=== PATIENT | male | born 1980 | race Two or more races ===

== ENCOUNTER 2024-06-25 08:15 | Emergency (ER) | payer SELFPAY ==
[2024-06-25 08:16] VITALS: BMI 29.1
[2024-06-25 08:26] VITALS: BP 147/109; PULSE 90; RESP 19; TEMP 36.9; O2SAT 97; BMI 31.1
--- NOTE | 2024-06-25 08:46 | XR_ITS ---
Examination: CT lumbar spine, without contrast. 2-D sagittal reconstructions. 2-D coronal reconstructions. 3-D reconstructions. Date and time of exam:June 25, 2024 0857 hours INDICATIONS: Onset severe left-sided lower back pain beginning 2 days ago CTDI: vol (mGy):24.3 DLP: (mGycm):787 Technique: Multiple 1.25 mm axial sections of the lumbar spine without intravenous contrast have been obtained. 2-D sagittal and coronal reconstructions have been obtained. 3-D reconstructions have been obtained. Low dose protocols were performed. One or more of the following dose reduction techniques were used; automated exposure control, adjustment of the mA and/or KV according to patient size, use of iterative reconstruction technique. Findings: Mild osteopenia Adequate alignment lumbar vertebral bodies on the lateral view No lumbar vertebral body fracture Mild disc narrowing posteriorly L5-S1 Lumbar pedicles, laminae, transverse and posterior spinous processes intact L5-S1 3 mm central lumbar disc bulge, bilateral neural foraminal stenosis with mild bilateral L5 ganglionic compression L4-L5 3 mm central lumbar disc bulge L3-L4 no disc protrusion L2-L3 no disc protrusion L1-L2 no disc protrusion IMPRESSION: No lumbar fracture Mild disc narrowing posteriorly L5-S1 L5-S1 3 mm central lumbar disc bulge, bilateral neural foraminal stenosis with mild bilateral L5 ganglionic compression L4-L5 3 mm central lumbar disc bulge Consider MRI lumbar spine without contrast follow-up to best assess full extent of acquired soft tissue spinal stenosis
--- NOTE | 2024-06-25 08:46 | XR_ITS ---
Examination: CT abdomen and pelvis without contrast. Coronal 3-D reconstructions. Sagittal 2-D reconstructions. Date and time of exam:June 25, 2024 0857 hours INDICATIONS: Onset severe left flank pain beginning 2 days ago CTDI: vol (mGy): 10.2 DLP: (mGycm): 666 Technique: Axial images of the abdomen have been obtained, 3 mm slice thickness Intravenous contrast material has not been administered. Low dose protocols were performed. One or more of the following dose reduction techniques were used; automated exposure control, adjustment of the mA and/or KV according to patient size, use of iterative reconstruction technique. Findings: No focal liver or splenic lesions No gallstones No pancreatic or adrenal mass No renal or ureteral calculi, no hydronephrosis Aorta normal size Normal appendix 9 mm fat-containing umbilical hernia No bowel obstruction No diverticulitis No bladder mass or bladder calculi Normal seminal vesicles No prostatomegaly Mild osteopenia Bilateral advanced hip osteoarthritis, bilateral congenital hip dysplasia appearance with slanted right and left acetabulum IMPRESSION: No renal or ureteral calculi, no hydronephrosis, no perinephric stranding Normal appendix Advanced bilateral hip osteoarthritis, bilateral congenital hip dysplasia
[2024-06-25] MEDS: ACETAMINOPHEN w/COD 300-30 TABLET 2 TAB PO (09:25)
[2024-06-25] MEDS: IBUPROFEN TAB 400 MG TABLET 800 MG PO (09:25)
--- NOTE | 2024-06-25 10:35 | PD.EDBACK ---
ED Back Injury Pain RME/HPI General Chief Complaint: Back Pain/Injury Stated Complaint: VOMITING/LEFT SIDE BACK PAIN FOR 2 DAYS Time Seen by Provider: 06/25/24 08:28 Arrival date/time: 06/25/24 08:15 RME / HPI RME / HPI Narrative: This section includes all my notes and documentations, including HPI, PE, and ED course.? Kun Restrepo MD HPI: 44-year-old male here with a couple day history of left-sided flank pain and low back pain. Radiating into the left leg. No numbness or tingling. No paralysis. No loss of control of bladder or bowels. No saddle numbness. No other complaints. ROS: All negative except as documented in HPI. Physical Exam: General:? Alert and oriented.??Appears to be in pain. Eyes:? Conjunctivae and lids clear.?? ENT:? No nasal congestion.?? Neck:? Supple.?? Lungs:? No respiratory distress.?? Back: Equivocal lumbar tenderness. Limited range of motion due to pain. Left straight leg raise equivocal. Abdomen: Soft and nontender. Skin:? Warm and dry.?? Neuro:? Alert and oriented X 3.?? I reviewed all diagnostic test results. My review of the CT abdomen/pelvis report is?no renal or ureteral calculi, no hydronephrosis, normal appendix. My review of the CT lumbar spine report is?L5-S1 3 mm central lumbar disc bulge, bilateral neural foraminal stenosis with mild bilateral L5 ganglionic compression, L4-L5 3 mm central lumbar disc bulge. At this point, diagnoses include?sciatica. Treatment here included two Tylenol #3. Started to feel better. Recommended conservative treatment and more outpatient workup. Based on my best medical judgment, made decision no further evaluation or treatment indicated at this time.? Patient understands and agrees to the discharge instructions customized and printed, see below. Discharge Instructions from Dr. Restrepo: --After evaluation, we are dealing with Sciatica (same as Lumbar Radiculopathy or Spinal Stenosis) where pinched nerve is causing your symptoms.? --This condition is difficult because normal pain medications don?t work very well on nerve pain. --Despite the pain, try to resume your normal chores and activities.? Because inactivity is terrible for this condition.? And activity won?t make your condition worse.? Use a cane of stick in your left hand to help stand and walk.? --Use Ibuprofen and Tylenol with codeine and lidocaine patches as needed.? Don't expect the pain to go away completely, hoping to take the edge off.?? --When resting and sleeping, try left t sided position (with your knees to your chest and bending forward).? This can take some pressure off the nerve and help your pain. --Apply ice or heat if helpful. --See a private doctor (outside the ER) on 06/28/2024 for recheck and further care. Ask to help you get more care not available here in the ER.? Such as MRI imaging, physical therapy, and referrals to see specialists.? Some choose to have surgery for this condition. But you need to have MRI imaging to confirm the diagnosis and assess the severity to get the best treatments. --Seek immediate medical care with paralysis in your foot, losing control of your bladder or bowels, saddle numbness (anal numbness), or with any concerns.?? Instrucciones de zander del Dr. Restrepo: --Despu?s de la evaluaci?n, estamos tratando con ci?renetta (igual que radiculopat?a lumbar o estenosis mcbride) donde un nervio pinzado est? causando terri s?ntomas. --Esta condici?n es dif?cil porque los analg?sicos normales no funcionan muy glen para el dolor del nervio. --A pesar del dolor, trate de reanudar terri tareas y actividades normales. Porque la inactividad es terrible para esta condici?n. Y la actividad no empeorar? baird condici?n. Use un aletha?n en baird mano izquierda para ayudarse a pararse y caminar. --Use ibuprofeno y Tylenol con parches de code?na y lidoca?na seg?n sea necesario. No espere que el dolor desaparezca por completo, con la avis de aliviarlo. --Cuando descanse y duerma, intente la posici?n del lado valorie (con las rodillas en el pecho e inclin?ndose hacia adelante). [place] puede aliviar un poco la presi?n del nervio y aliviar baird dolor. --Aplique hielo o calor si es ?til. --Consulte a un m?dico privado (fuera de la mauricio de emergencias) el 28/06/2024 para un nuevo control y m?s atenci?n. [place]olicite ayuda para obtener m?s atenci?n que no est? disponible aqu? en la mauricio de emergencias, randall im?genes por resonancia magn?renetta, fisioterapia y derivaciones para mary a especialistas. Algunas personas optan por operarse para esta afecci?n. Dayday es necesario que se jhon susie resonancia magn?renetta para confirmar el diagn?stico y evaluar la gravedad para obtener los mejores tratamientos. --Busque atenci?n m?dica inmediata si tiene par?lisis en el pie, p?rdida de control de la vejiga o los intestinos, entumecimiento anal o cualquier inquietud. Related Data Previous Rx's ?Medication ?Instructions ?Recorded acetaminophen 300 mg-codeine 30 mg 2 tab PO TID PRN pain #20 tabs 06/25/24 tablet acetaminophen 300 mg-codeine 30 mg 2 tab PO TID PRN pain #20 tabs 06/25/24 tablet ibuprofen 800 mg tablet 800 mg PO Q8H PRN pain #30 tabs 06/25/24 lidocaine 5 % topical patch 2 patch topical QDAY PRN pain #30 06/25/24 (Lidoderm) ea Allergies Allergy/AdvReac Type Severity Reaction Status Date / Time No Known Allergies Allergy Verified 06/25/24 08:19 Review of Systems Review of Systems Systems Reviewed: All systems reviewed, normal except as documented Past Medical History Social History SMOKING STATUS: Never smoker ED Exam Narrative Physical exam: As noted in HPI Course Quality Measures none Orders Category Date Time Status CT abdomen pelvis wo con Stat Exams 06/25/24 08:[address] lumbar spine wo con Stat Exams 06/25/24 08:46 Completed ACETAMINOPHEN w/COD 300-30 [Tylenol w/Cod #3] Med 06/25/24 08:46 Discontinued 2 tab PO X1 ONE Ibuprofen Tab [Motrin Tab] Med 06/25/24 08:46 Discontinued 800 mg PO X1 ONE Vital Signs Vital signs: Vital Signs Temperature 98.5 F 06/25/24 08:26 Pulse Rate 90 06/25/24 08:26 Respiratory Rate 19 06/25/24 08:26 Blood Pressure 147/109 H 06/25/24 08:26 Pulse Oximetry (%) 97 06/25/24 08:26 Oxygen Delivery Method Room Air 06/25/24 08:26 Pulse ox is 97% on room air which is adequate. Back Pain / Injury Patient data External records reviewed:: [facility] [place] previous records (Per EMR review, patient has no previous visits ) Clinical information provided by:: patient Social determinants that could affect healthcare access:: none Patient has the following chronic illnesses:: None reported How is presenting disease/condition affected by chronic disease/condition?: no chronic disease Evaluation data The following diagnostics were reviewed and interpreted by me:: radiology exam(s) Lab and/or radiology exams considered but not ordered:: None Interpretation Summary: Lumbar spinal stenosis Medications / Prescriptions Medications or Prescriptions considered but not ordered:: None Medication administrations:: Medication Administration History Discontinued Medications Acetaminophen/Codeine Phosphate (Acetaminophen W/Cod 300-30 Tablet) 2 tab PO X1 ONE Stop: 06/25/24 08:47 Last Admin: 06/25/24 09:25 Dose: 2 tab Documented By: ED Ibuprofen (Ibuprofen Tab 400 Mg Tablet) 800 mg PO X1 ONE Stop: 06/25/24 08:47 Last Admin: 06/25/24 09:25 Dose: 800 mg Documented By: ED Patient given Tylenol with codeine and Ibuprofen Consultations Consultation(s) initiated? (list below): No Diagnosis Differential diagnosis back pain/injury: lumbar radiculopathy, sciatica, strain of lumbar region, renal colic, pyelonephritis, thoracic back pain, AAA and discitis Most likely diagnosis given after review of the tests above:: Sciatica Admission Indicated Admission indicated?: not indicated Explain why admission is indicated or not indicated:: Admission criteria not met Admission Request Was there a request for admission?: No Disposition Plan Disposition Plan: Discharge Discharge Attestation Discharge Attestation: The patient and all family members were given an opportunity to ask questions and understood the discharge instructions. Discharge instructions specifically effects, indications for sooner follow up or return to the emergency department, and the expected course of current diagnosis. Patient condition: Stable Discharge Plan Plan Patient Disposition: HOME (Self Care) Prescriptions/Referrals Prescriptions/Med Rec: New ibuprofen 800 mg tablet 800 mg PO Q8H PRN (Reason: pain) Qty: 30 0RF acetaminophen-codeine 300-30 mg tablet 2 tab PO TID MDD 6 PRN (Reason: pain) Qty: 20 0RF lidocaine [Lidoderm] 5 % adhesive patch,medicated 2 patch topical QDAY PRN (Reason: pain) Qty: 30 0RF Rx Instructions: leave on most painful area for up to 12 hrs acetaminophen-codeine 300-30 mg tablet 2 tab PO TID MDD 6 PRN (Reason: pain) Qty: 20 0RF Problem List Clinical Impression: Sciatica Patient/Caregiver Discharge Instructions Discharge Activity: activity as tolerated Education Materials: ED Sciatica Additional Instructions: Discharge Instructions from Dr. Restrepo: --After evaluation, we are dealing with Sciatica (same as Lumbar Radiculopathy or Spinal Stenosis) where pinched nerve is causing your symptoms.? --This condition is difficult because normal pain medications don?t work very well on nerve pain. --Despite the pain, try to resume your normal chores and activities.? Because inactivity is terrible for this condition.? And activity won?t make your condition worse.? Use a cane of stick in your left hand to help stand and walk.? --Use Ibuprofen and Tylenol with codeine and lidocaine patches as needed.? Don't expect the pain to go away completely, hoping to take the edge off.?? --When resting and sleeping, try left t sided position (with your knees to your chest and bending forward).? This can take some pressure off the nerve and help your pain. --Apply ice or heat if helpful. --See a private doctor (outside the ER) on 06/28/2024 for recheck and further care. Ask to help you get more care not available here in the ER.? Such as MRI imaging, physical therapy, and referrals to see specialists.? Some choose to have surgery for this condition. But you need to have MRI imaging to confirm the diagnosis and assess the severity to get the best treatments. --Seek immediate medical care with paralysis in your foot, losing control of your bladder or bowels, saddle numbness (anal numbness), or with any concerns.?? Instrucciones de zander del Dr. Restrepo: --Despu?s de la evaluaci?n, estamos tratando con ci?renetta (igual que radiculopat?a lumbar o estenosis mcbride) donde un nervio pinzado est? causando terri s?ntomas. --Esta condici?n es dif?cil porque los analg?sicos normales no funcionan muy glen para el dolor del nervio. --A pesar del dolor, trate de reanudar terri tareas y actividades normales. Porque la inactividad es terrible para esta condici?n. Y la actividad no empeorar? baird condici?n. Use un aletha?n en baird mano izquierda para ayudarse a pararse y caminar. --Use ibuprofeno y Tylenol con parches de code?na y lidoca?na seg?n sea necesario. No espere que el dolor desaparezca por completo, con la avis de aliviarlo. --Cuando descanse y duerma, intente la posici?n del lado valorie (con las rodillas en el pecho e inclin?ndose hacia adelante). [place] puede aliviar un poco la presi?n del nervio y aliviar baird dolor. --Aplique hielo o calor si es ?til. --Consulte a un m?dico privado (fuera de la mauricio de emergencias) el 28/06/2024 para un nuevo control y m?s atenci?n. Solicite ayuda para obtener m?s atenci?n que no est? disponible aqu? en la mauricio de emergencias, randall im?genes por resonancia magn?renetta, fisioterapia y derivaciones para mary a especialistas. Algunas personas optan por operarse para esta afecci?n. Dayday es necesario que se jhon susie resonancia magn?renetta para confirmar el diagn?stico y evaluar la gravedad para obtener los mejores tratamientos. --Busque atenci?n m?dica inmediata si tiene par?lisis en el pie, p?rdida de control de la vejiga o los intestinos, entumecimiento anal o cualquier inquietud. Print Language: Croatian Stand Alone Forms: [employer] Award Info., Patient Portal Info Letter
== END 2024-06-25 10:44 | disposition home or self-care (01) ==
LOC: SERX 10:41
PROVIDERS: Emergency Provider Emergency Medicine
DX: M51.17 Intervertebral disc disorders with radiculopathy, lumbosacral region (principal); M48.07 Spinal stenosis, lumbosacral region; G95.29 Other cord compression; R11.10 Vomiting, unspecified; R10.9 Unspecified abdominal pain
CPT/HCPCS: 72131; 74176; 99284; A9270

== ENCOUNTER 2024-07-23 05:12 | Emergency (ER) | payer SELFPAY ==
[2024-07-23 05:13] VITALS: BMI 30.9
[2024-07-23 05:21] VITALS: BP 137/91; PULSE 74; RESP 18; TEMP 36.8; O2SAT 99
--- NOTE | 2024-07-23 05:35 | EDRME_ITS ---
Rapid Medical Screening Exam [facility] Arrival date/time: 07/23/24 05:12 44M with no significant PMH presents to ED with L upper back pain w/o known fall/trauma. Patient has also had a worsening cough that started after the back pain. Patient was here recently with unremarkable CT ab/pelvic and lumbar spine. Patient had been taking ibuprofen/Tylenol w/o relief. Patient denies drug/alcohol use. Pain is worse with movement. Patient does work is in the dairy industry. Chief Complaint: Back Pain/Injury Vital signs: Vital Signs Temperature 98.2 F 07/23/24 05:21 Pulse Rate 74 07/23/24 05:21 Respiratory Rate 18 07/23/24 05:21 Blood Pressure 137/91 H 07/23/24 05:21 Pulse Oximetry (%) 99 07/23/24 05:21 Oxygen Delivery Method Room Air 07/23/24 05:21
--- NOTE | 2024-07-23 05:36 | XR_ITS ---
Examination: PA chest single view Technique: Upright PA chest single view Exam date and time: August 02, 2024 0547 hrs. Indications: Coughing beginning one month ago. Findings: Normal heart size Lungs are clear The osseous structures are intact Impression: No pneumonia identified
[2024-07-23] MEDS: CYCLObenzaPRINE 5 MG TABLET PO (05:58)
--- NOTE | 2024-07-23 07:33 | EDNOTE_ITS ---
<Statement entered by Miley Carcamo MD - 07/27/24 07:22> As co-signing physician, I was present and available for consult prn. I concur with the plan and care as documented by the midlevel provider. Upper Respiratory Inf. RME/HPI General Chief Complaint: Back Pain/Injury Stated Complaint: BACK PAIN Time Seen by Provider: 07/23/24 06:49 Source: patient Arrival date/time: 07/23/24 0600 This is a 44-year-old male who presented to the emergency department with complaints of intermittent cough for 3 days, reports is heard wheezing. No reports of fevers, chest pain or dyspnea. Patient reported the cough has led to pain between his shoulder blades prompting his ED visit today. Patient did not attempt any interventions or take any OTC medications prior to ED visit. Patient denies any other associated symptoms or aggravating factors. No modifying factors, no radiation, no migration. Mode of arrival: ambulatory Limitations: no limitations RME / HPI RME / HPI Narrative: 07/23/24 05:12 44M with no significant PMH presents to ED with L upper back pain w/o known fall/trauma. Patient has also had a worsening cough that started after the back pain. Patient was here recently with unremarkable CT ab/pelvic and lumbar spine. Patient had been taking ibuprofen/Tylenol w/o relief. Patient denies drug/alcohol use. Pain is worse with movement. Patient does work is in the dairy industry. Related Data Previous Rx's ?Medication ?Instructions ?Recorded acetaminophen 300 mg-codeine 30 mg 2 tab PO TID PRN pa in #20 tabs 06/25/24 tablet acetaminophen 300 mg-codeine 30 mg 2 tab PO TID PRN pa in #20 tabs 06/25/24 tablet ibuprofen 800 mg tablet 800 mg PO Q8H PRN pain #30 t abs 06/25/24 lidocaine 5 % topical patch 2 patch topical QDAY PRN p ain #30 06/25/24 (Lidoderm) ea albuterol sulfate 90 mcg/actuation 2 puff inhalation Q 6H PRN 07/23/24 aerosol inhaler (Ventolin HFA) shortness of breath or wheezing #8.5 grams azithromycin 250 mg tablet 250 mg PO QDAY 5 days #6 ta bs 07/23/24 promethazine-DM 6.25 mg-15 mg/5 mL 5 ml PO Q6H PRN cou #118 mL 07/23/24 oral syrup Allergies Allergy/AdvReac Type Severity Reaction Status Date / Time No Known Allergies Allergy Verified 06/25/24 08:19 Review of Systems Review of Systems Systems Reviewed: All systems reviewed, normal except as documented Narrative Review of Systems: Gen: No fever, no chills, no weight loss EYES: No discharge, no visual changes, no pain HEENT: No ear pain, no congestion, no sore throat PULM: No shortness of breath, + cough, no congestion, + with CV: No chest pain, no dyspnea on exertion, no palpitations GI: No nausea, no vomiting, no diarrhea, no pain, no constipation : No frequency, no urgency, no dysuria Musc/skel: No joint pain, upper back pain Skin: No rash Psyc: No hallucinations, no depression Heme/Lymph: No easy bleeding or bruising tendencies Neuro: No weakness, no headache ED Exam General Limitations: Present no limitations General appearance: Present alert and in no apparent distress Head Head exam: Present atraumatic Eye Eye exam: Present normal appearance, PERRL and EOMI ENT ENT exam: Present normal exam, normal oropharynx and mucous membranes moist Neck Neck exam: Present normal inspection, full ROM and trachea midline Chest Chest inspection: Present normal inspection and symmetric chest wall rise Respiratory Respiratory exam: Present normal lung sounds bilaterally Cardiovascular Cardiovascular exam: Present regular rate, normal rhythm and normal heart sounds Abdominal Exam Abdominal exam: Present soft and normal bowel sounds Extremities Exam Extremities exam: Present normal inspection and full ROM Back Exam Back exam: Present normal inspection and full ROM Neurological Exam Neurological exam: Present alert, oriented X3 and CN II-XII intact Psychiatric Psychiatric exam: Present normal affect and normal mood Skin Skin exam: Present warm, dry, intact and normal color Course Quality Measures none Orders Category Date Time Status XR chest 1V portable Stat Exams 07/23/24 05:36 Completed CYCLObenzaPRINE [Flexeril] Med 07/23/24 05:36 Discontinued 5 mg PO X1 ONE Vital Signs Vital signs: Vital Signs Temperature 98.2 F 07/23/24 05:21 Pulse Rate 74 07/23/24 05:21 Respiratory Rate 18 07/23/24 05:21 Blood Pressure 137/91 H 07/23/24 05:21 Pulse Oximetry (%) 99 07/23/24 05:21 Oxygen Delivery Method Room Air 07/23/24 05:21 Upper Respiratory Infection MDM Narrative MDM Narrative:: 44-year-old male evaluated in the emergency department for upper back pain associated with cough. Advised patient most likely bronchitis. An x-ray was obtained which was negative for pneumonia or pulm luis infiltrate. Will treat with Phenergan DM, albuterol inhaler sent to pharmacy. And a course of Z-Ramiro. Advised to follow-up with his clinic return to the emergency department there is any worsening symptoms change in condition. Patient data External records reviewed:: [facility] previous records Clinical information provided by:: patient Social determinants that could affect healthcare access:: none Patient has the following chronic illnesses:: no How is presenting disease/condition affected by chronic disease/condition?: no chronic disease Evaluation data The following diagnostics were reviewed and interpreted by me:: radiology exam(s) Lab and/or radiology exams considered but not ordered:: no Interpretation Summary: Examination: PA chest single view Technique: Upright PA chest single view Exam date and time: August 02, 2024 0547 hrs. Indications: Coughing beginning one month ago. Findings: Normal heart size Lungs are clear The osseous structures are intact Impression: No pneumonia identified Medications / Prescriptions Medications or Prescriptions considered but not ordered:: no Medication administrations:: Medication Administration History Discontinued Medications Cyclobenzaprine HCl (Cyclobenzaprine 5 Mg Tablet) 5 mg PO X1 ONE Stop: 07/23/24 05:37 Last Admin: 07/23/24 05:58 Dose: 5 mg Documented By: All medications administered and effective Consultations Consultation(s) initiated? (list below): No Diagnosis Upper Respiratory Differential Diagnosis: upper respiratory infection, viral infection, bronchitis, influenza and pharyngitis Most likely diagnosis given after review of the tests above:: Bronchitis Admission Indicated Admission indicated?: not indicated Admission Request Was there a request for admission?: No Disposition Plan Disposition Plan: Discharge Discharge Attestation Discharge Attestation: The patient and all family members were given an opportunity to ask questions and understood the discharge instructions. Discharge instructions specifically effects, indications for sooner follow up or return to the emergency department, and the expected course of current diagnosis. Patient condition: Stable Discharge Plan Plan Patient Disposition: HOME (Self Care) Patient condition on transfer: Stable Prescriptions/Referrals Prescriptions/Med Rec: New albuterol sulfate [Ventolin HFA] 90 mcg/actuation HFA aerosol inhaler 2 puff inhalation Q6H PRN (Reason: shortness of breath or wheezing) Qty: 8.5 0RF promethazine-DM 6.25-15 mg/5 mL syrup 5 ml PO Q6H PRN (Reason: cough) Qty: 118 0RF azithromycin 250 mg tablet 250 mg PO QDAY 5 Days Qty: 6 0RF Rx Instructions: 500 mg p.o. day 1, 250 mg p.o. daily for 4 days No Action ibuprofen 800 mg tablet 800 mg PO Q8H PRN (Reason: pain) Qty: 30 0RF acetaminophen-codeine 300-30 mg tablet 2 tab PO TID MDD 6 PRN (Reason: pain) Qty: 20 0RF lidocaine [Lidoderm] 5 % adhesive patch,medicated 2 patch topical QDAY PRN (Reason: pain) Qty: 30 0RF Rx Instructions: leave on most painful area for up to 12 hrs acetaminophen-codeine 300-30 mg tablet 2 tab PO TID MDD 6 PRN (Reason: pain) Qty: 20 0RF Referrals: No Primary/Family,Physician [Primary Care Provider] - In 1 week Problem List Clinical Impression: Bronchitis Patient/Caregiver Discharge Instructions Discharge Activity: activity as tolerated Education Materials: ED Upper Resp Infec Abx Tx Additional Instructions: Please keep an appointment with your primary doctor. Start antibiotics as directed Albuterol inhaler for wheezing or coughing spells. Cough syrup was sent to the pharmacy. Return to the emergency department this any worsening symptoms change in condition. Print Language: Slovenian Stand Alone Forms: Yasmine Award Info., Work/School Release, Patient Portal Info Letter PA/[employer] F[employer] OPERATOR Supervising Physician PA/T[employer] F[employer] OPERATOR Supervising Physician: Dr. Zhou
== END 2024-07-23 07:52 | disposition home or self-care (01) ==
PROVIDERS: Emergency Provider Emergency Medicine
DX: J40 Bronchitis, not specified as acute or chronic (principal)
CPT/HCPCS: 71045; 99283; A9270